=== PATIENT | female | born 1995 | race African-American/Black ===

== ENCOUNTER 2023-03-31 19:40 | Emergency (ER) | payer MEDICAID ==
[~2023-03-31] VITALS: Ht 172.7 cm; Wt 63.2 kg
[2023-03-31 19:45] VITALS: BP 141/87; PULSE 105; RESP 14; TEMP 98.2; O2SAT 99
[2023-03-31] MEDS ORDERED: KETOROLAC 30MG/ML VIAL IM ONE (20:15)
== END 2023-03-31 22:39 ==
LOC: ER 19:40
DX: O46.91 Antepartum hemorrhage, unspecified, first trimester (principal); Z3A.01 Less than 8 weeks gestation of pregnancy
CPT/HCPCS: 81025; 99282